=== PATIENT | male | born 1960 ===

== ENCOUNTER 2017-12-07 13:33 | Outpatient (CLI) | payer OTHER ==
--- NOTE | 2017-12-07 14:55 | Cat Scan Report ---
CT HEAD WITH AND WITHOUT CONTRAST: HISTORY: Essential hypertension. Serial contiguous axial images were obtained through the cranium, both before and after the administration of intravenous contrast material. The ventricles are normal in size and appearance. There is no mass effect or midline shift. No areas of abnormally increased or decreased attenuation are seen. No mass lesion is seen. The mastoid air cells and visualized portions of the sinuses are normal. IMPRESSION: Cranial CT scan within normal limits.
== END 2017-12-07 13:34 | disposition home or self-care (01) ==
LOC: CT 13:33
PROVIDERS: ATTEND Internal Medicine Cardiovascular Disease
DX: I10 Essential (primary) hypertension (principal)
CPT/HCPCS: 70470; Q9967